=== PATIENT | male | born 1995 | race Caucasian/White ===

== ENCOUNTER 2019-04-16 13:50 | Emergency (ER) | payer BC ==
[~2019-04-16] VITALS: Ht 180.3 cm; Wt 82.8 kg
[~2019-04-16 13:50] MED LIST: PRED20TA PO
--- NOTE | 2019-04-16 13:56 | NUR ---
ERIN CHARGE NURSE INFORMED OF PT STATUS AND WRIST DEFORMITY
[2019-04-16] MEDS ORDERED: HYDROcodone/acetaminophen 10/325mg tab PO STA (14:17)
[2019-04-16] MEDS ORDERED: morphine 4 MG/ML inj SYRINge IV ONE (16:05)
[2019-04-16] MEDS ORDERED: etomidate 2mg/ml inj. IV ONE (16:05)
[2019-04-16] MEDS ORDERED: ketorolac trometh. 30mg/ml inj. IV ONE (16:05)
--- NOTE | 2019-04-16 16:12 | NUR ---
PT SIGNED CONSENT FOR PROCEDURAL SEDATION FOR CLOSED REDUCTION OF RT WRIST
[2019-04-16] MEDS ORDERED: propofol 1000mg/100ml bottle 100 ML IV ONE (16:52)
[2019-04-16] MEDS ORDERED: HYDR-4353 PO (17:19)
[2019-04-16 17:52] VITALS: BP 136/75
== END 2019-04-16 17:54 | disposition home or self-care (01) ==
LOC: ER 13:51
DX: S52.531A Colles' fracture of right radius, initial encounter for closed fracture (principal); F12.90 Cannabis use, unspecified, uncomplicated; W18.30XA Fall on same level, unspecified, initial encounter; Y93.51 Activity, roller skating (inline) and skateboarding; Y92.89 Other specified places as the place of occurrence of the external cause; Y99.8 Other external cause status
CPT/HCPCS: 25605; 73090; 73110; 96374; 96375; 99152; 99285; J1885; J2270; J2704